=== PATIENT | male | born 1965 | race Caucasian/White ===

== ENCOUNTER 2025-01-19 06:16 | Day surgery (SDC) | payer BC ==
[2025-01-19] MEDS ORDERED: DEXAMETHASONE SOD PHOSPHATE 10 MG/1 ML VIAL ONE (07:35)
[2025-01-19] MEDS ORDERED: LIDOCAINE HCL/PF 1% SDV 5ML VIAL ONE (07:35)
[2025-01-19 09:08] VITALS: RESP 18; BMI 29.8
[2025-01-19] MEDS: LIDOCAINE HCL 1% PRESERVATIVE FREE - 30ML VIAL IJ ONE (11:47)
[2025-01-19] MEDS: DEXAMETHASONE SOD PHOSPHATE 10 MG/1 ML VIAL IVPUSH ONE (11:52)
[2025-01-19 12:13] VITALS: BP 130/99; PULSE 61; TEMP 97.8
== END 2025-01-19 12:15 | disposition home or self-care (01) ==
LOC: JASU-SURG 06:16
PROVIDERS: ATTEND Pain Medicine Pain Medicine
PROC: 3E0R3BZ Introduction of Anesthetic Agent into Spinal Canal, Percutaneous Approach (ICD-10-PCS; 2025-01-19)
PROC: 3E0R33Z Introduction of Anti-inflammatory into Spinal Canal, Percutaneous Approach (ICD-10-PCS; principal; 2025-01-19 10:15)
DX: M54.16 Radiculopathy, lumbar region (principal)
CPT/HCPCS: 76000-TC-FY; J1100

== ENCOUNTER 2025-02-22 06:08 | Day surgery (SDC) | payer BC ==
[2025-02-22] MEDS: DEXAMETHASONE SOD PHOSPHATE 10 MG/1 ML VIAL IVPUSH ONE
[2025-02-22 07:03] VITALS: RESP 18
[2025-02-22] MEDS ORDERED: TRIAMCINOLONE ACET 40MG/1ML VIAL ONE (07:39)
[2025-02-22] MEDS: IOHEXOL 180 MG/1 ML ML IJ ONE ×3 (08:30→08:31)
[2025-02-22] MEDS: LIDOCAINE HCL 1% PRESERVATIVE FREE - 30ML VIAL IJ ONE ×2 (08:30)
[2025-02-22] MEDS: BUPIVACAINE HCL/PF 0.5% (5MG/ML) 10 ML VIAL IJ ONE ×3 (08:31)
[2025-02-22] MEDS: TRIAMCINOLONE ACET 40MG/1ML VIAL IM ONE ×3 (08:31→08:32)
[2025-02-22 08:42] VITALS: BP 133/89; PULSE 68; TEMP 97.8
[2025-02-22] MEDS ORDERED: ACETAMINOPHEN 500 MG TABLET (FP) PO PRN (20:16)
== END 2025-02-22 08:45 | disposition home or self-care (01) ==
LOC: JASU-SURG 06:08
PROVIDERS: ATTEND Pain Medicine Pain Medicine
PROC: 3E0U3BZ Introduction of Anesthetic Agent into Joints, Percutaneous Approach (ICD-10-PCS; 2025-02-22)
PROC: 3E0U33Z Introduction of Anti-inflammatory into Joints, Percutaneous Approach (ICD-10-PCS; principal; 2025-02-22 14:00)
DX: M53.3 Sacrococcygeal disorders, not elsewhere classified (principal)
CPT/HCPCS: 76000-TC-FY; J1100